=== PATIENT | male | born 1985 | race Caucasian/White ===

== ENCOUNTER 2018-06-11 09:27 | Emergency (ER) | payer BC ==
[~2018-06-11] VITALS: Ht 188 cm; Wt 159.2 kg
[2018-06-11 10:02] LABS: BASOPHIL (%) 0.5 % (0-1); EOSINOPHIL (%) 0.9 % (0-5); EOSINOPHIL COUNT 0.1 K/uL (0-0.3); HEMATOCRIT 40.9 % (38.0-50.0); HEMOGLOBIN 14.7 G/DL (12.5-16.6); IMMATURE GRANULOCYTE (%) 0.4 % (0.0-0.7); LYMPHOCYTE (%) 14.3 % (15-42); LYMPHOCYTE COUNT 1.2 K/uL (1.0-2.8); MCH 31.1 PG (29.0-34.0); MCHC 35.9 G/DL (30.0-36.0); MCV 86.5 FL (86-99); MONOCYTE (%) 9.6 % (3-12); MONOCYTE COUNT 0.8 K/uL (0-0.8); NEUTROPHIL (%) 74.3 % (45-76); NEUTROPHIL COUNT 6.3 K/uL (1.8-6.4); PLATELET COUNT 186 K/uL (156-360); RBC DIS.WIDTH-CV 12.4 % (11.8-14.6); RED BLOOD COUNT 4.73 M/uL (4.00-5.50); WHITE BLOOD COUNT 8.4 K/uL (4.1-10.2)
[2018-06-11 10:13] LABS: ALBUMIN 4.2 g/dL (3.2-4.8); CHLORIDE 105 mEq/L (99-109); GLUCOSE 121 mg/dL (70-99); POTASSIUM 4.3 mEq/L (3.7-5.4); SODIUM 139 mEq/L (136-147); TOTAL PROTEIN 6.7 g/dL (6.4-8.3)
[2018-06-11 10:15] LABS: TOTAL BILIRUBIN 0.6 mg/dL (0.0-1.0)
[2018-06-11 10:17] LABS: ALKALINE PHOSPHATASE 68 IU/L (3-129); GFR ESTIMATE (CALCULATED) > 59 mL/min/ (58.99-99999)
[2018-06-11 10:18] LABS: UREA NITROGEN (BUN) 12 mg/dL (9-23)
[2018-06-11 10:19] LABS: AST (GOT) 29 IU/L (2-34)
[2018-06-11 10:20] LABS: ALT (GPT) 74 IU/L (3-49); LIPASE 32 U/L (1.0-51.0)
[2018-06-11 10:22] LABS: TROP-I INTERPRETATION NEGATIVE; TROPONIN-I < 0.01 ng/mL (0.0-0.30)
[2018-06-11 10:28] LABS: D-DIMER ELISA < 150.00 ng/mLDDU (<230)
[2018-06-11 13:02] LABS: TROP-I INTERPRETATION NEGATIVE; TROPONIN-I < 0.01 ng/mL (0.0-0.30)
[2018-06-11] MEDS ORDERED: ZITHROMAX Z-PA250 MG PO (13:19)
[2018-06-11 13:28] VITALS: BP 122/78
== END 2018-06-11 13:32 | disposition home or self-care (01) ==
LOC: EME 09:27
PROVIDERS: Emergency Medicine
DX: J18.9 Pneumonia, unspecified organism (principal); E78.5 Hyperlipidemia, unspecified; I10 Essential (primary) hypertension; F17.200 Nicotine dependence, unspecified, uncomplicated; F41.9 Anxiety disorder, unspecified; G25.81 Restless legs syndrome
CPT/HCPCS: 70450; 71046; 71260; 80053; 83690; 84484; 85025; 85379; 93005; 99281; 99284; J7040